=== PATIENT | male | born 1980 | race African-American/Black ===

== ENCOUNTER 2022-02-01 12:25 | Emergency (ER) | payer OTHER, SELFPAY ==
[2022-02-01 12:31] VITALS: BP 134/88; PULSE 76; RESP 18; TEMP 36.6; O2SAT 98; BMI 33.3
[2022-02-01 12:49] VITALS: BP 129/93; PULSE 108
[2022-02-01] MEDS: LORazepam 1 MG TABLET 2 MG PO (13:02)
[2022-02-01] MEDS: Ondansetron ODT 4 MG TAB.RAPDIS TRANSLINGU (13:02)
[2022-02-01] MEDS: HaloperidoL 5 MG TABLET PO (13:03)
[2022-02-01] MEDS: diphenhydrAMINE HCL 25 MG TABLET 50 MG PO (13:03)
--- NOTE | 2022-02-01 13:07 | PC.NURSE ---
Pt redirectable but having momentary outbursts. Pt did take oral meds willingly but then had moment of anxiety and forcefully vomited by putting his fingers down his throat. Possible loss of oral meds via vomiting. Pt states that he needs an IV .
[2022-02-01 13:25] LABS: MANUAL DIFF FLAG NO
[2022-02-01 13:28] LABS: Basophils Absolute Auto 0.1 X10*3/uL (0.0-0.2); Basophils Percent Auto 0.4 % (0-2); Hematocrit 49.5 % (42.0-52.0); Hemoglobin 16.5 g/dl (14.0-18.0); Imm Gran Abs Auto 0.03 X10*3/uL (0.00-0.03); Imm Gran Pct Auto 0.2 % (0.0-0.4); Lymphocytes Absolute Auto 4.4 X10*3/uL (1.2-4.9); Lymphocytes Percent Auto 35.8 % (20-40); Mean Corpuscular HGB Conc 33.3 g/dl (31.0-36.0); Mean Corpuscular Hemoglobin 27.3 pg (27.0-33.0); Mean Corpuscular Volume 81.8 fL (80.0-98.0); Mean Platelet Volume 9.3 fL (9.4-12.4); Monocytes Absolute Auto 0.8 X10*3/uL (0.1-1.2); Monocytes Percent Auto 6.4 % (2-11); Neutrophils Percent Auto 57.2 % (45-73); Platelet Count 488 X10*3/uL (160-400); Red Blood Count 6.05 X10*6/uL (4.60-5.80); Red Cell Distribution Width 13.5 % (11.0-16.0); White Blood Count 12.3 X10*3/uL (4.8-10.8)
[2022-02-01] MEDS: Haloperidol Lactate 5 MG/ML VIAL IVPUSH (13:33)
[2022-02-01] MEDS: diphenhydrAMINE HCL 50 MG/ML VIAL IVPUSH (13:33)
[2022-02-01] MEDS: ondansetron HCL 4 MG/2 ML VIAL IVPUSH (13:33)
[2022-02-01 13:42] LABS: COVID-19 Test Negative (Negative); IDNOW Serial# 16C4AD1C
[2022-02-01 13:44] LABS: Alanine Aminotransferase 47 U/L (0-40); Albumin Level 4.3 g/dL (3.5-5.0); Alkaline Phosphatase 95 U/L (39-117); Anion Gap 19 (12-20); Aspartate Amino Transferase 29 U/L (5-37); Bilirubin Total < 0.2 mg/dL (0.0-1.0); Blood Urea Nitrogen 12 mg/dL (9-16); Calcium 8.8 mg/dL (8.4-10.2); Carbon Dioxide 22 mmol/L (22-29); Chloride 106 mmol/L (96-108); Creatinine Clr Calc Pharmacy 84.1; Estimated Glomerular Filt Rate > 60; Ethanol 215 mg/dL; Glucose Random 112 mg/dL (60-115); Sodium 143 mmol/L (135-145); Total Protein 7.9 g/dL (6.5-8.0)
--- NOTE | 2022-02-01 14:16 | ED_ITS ---
HPI - Psych General Chief Complaint: ETOH/Substance Use Stated Complaint: ETOH Time Seen by Provider: 02/01/22 12:41 Source: patient Mode of arrival: ambulatory Limitations: other (Intoxicated) History of Present Illness HPI Narrative: 41-year-old male with a past medical history of anxiety, depression and PTSD who reports he sees a therapist/psychiatrist is presenting to the ED with complaints of increased anxiety/depression/PTSD feeling very regretful for stuff he has done in the past although very vague about this. Reports that today he drank 1 gal of vodka and then attempt to kill himself. He continues to say ?I just want to end myself?. Is presenting with nausea and vomiting actively. He denies any drug usage. He denies any HI/auditory visualizations or thoughts of self injury. Reports he does not drink every day only socially. Reports he is pain large amounts of child support. Reports that he was living with his girlfriend although she is moving on going to [place] now he will be by himself. Denies any dizziness, headaches, chest pain or shortness of breath, dyspnea on exertion, orthopnea, sore throat, cough, rashes, recent falls or trauma, abdominal pain, back pain, flank pain, dysuria, hematuria, abnormal penile discharge, recent travel or sick contacts, lower extremity edema or calf tenderness or any other symptoms complaints or concerns at this time. MD complaint: suicidal ideation, feels depressed, anxiety and alcohol abuse Onset (ago): week(s) Duration: constant and getting worse History of same: Yes Relieving factors: none Exacerbating factors: alcohol Context: recent alcohol abuse and significant life stressor (Reports he is very regretful 1st things that he did in the past although is very vague) Associated psychiatric symptoms: depression, suicidal ideation and racing thoughts Associated symptoms: denies other symptoms Treatments prior to arrival: none If self harm: admits thoughts of self harm, has plan and has acted on plan (Patient intentionally tried to overdose on alcohol he drank 1 gal of vodka) Related Data Allergies Allergy/AdvReac Type Severity Reaction Status Date / Time No Known Allergies Allergy Mild NKA Unverified 02/22/20 14:41 Review of Systems Review of Systems: Constitutional : No Fever, No Chills ENT/Mouth : No Ear Pain, No Nasal Congestion, No sore throat Eyes: No Eye Pain, No Swelling, No Redness Cardiovascular : No Chest Pain, No SOB Respiratory : No Cough, No Sputum, No Dyspnea Gastrointestinal : No ingestions, + Nausea, + Vomiting, No Diarrhea, No Hematochezia, No Melena Genitourinary : No Dysuria, No Urinary Frequency, No Hematuria Musculoskeletal : No Myalgias Skin : No Skin Lesions, No rash Neuro : No Weakness, No Numbness, No Paresthesias, No Dizziness, No Headache Psych : + Anxiety, + Depression, + SI, + thoughts of self injury, No HI, No AVH, Heme/Lymph: No Lymphadenopathy Endocrine : No Polyuria, No Polydipsia Yes all other systems are reviewed and are negative [facility] Past Medical History Attestation statement: The following information was validated with the patient. Source: old records reviewed and nursing notes reviewed Social History Social History Alcohol intake: current Alcohol intake frequency: 3 or more drinks per day Advance Directives: No Advance Directives Information Provided: No Physical Exam Vital Signs: Vital Signs: Last Vital Signs Temp 98 F 02/01/22 12:31 Pulse 108 H 02/01/22 12:49 Resp 18 02/01/22 12:31 BP 129/93 H 02/01/22 12:49 Pulse Ox 98 02/01/22 12:31 O2 Del Method 02/01/22 12:31 BMI result Body Mass Index 33.3 vital signs have been reviewed as normal and appeared to be correct. Blood pressure normal. Heart rate normal. Respiration rate normal. Temperature normal. Oxygen saturation normal. Appearance: Alert and very anxious intoxicated with EtOH on odor. Oriented X3. No acute distress. Head: Normal external exam. Normocephalic. Atraumatic. No Peres signs noted. No raccoon eyes noted Eyes: PERRLA. EOMI. Conjunctiva and sclera normal. Eyelids normal. ENT: EAC normal. TM's Normal. Pharynx normal. Uvula midline. Moist mucous membranes. No trismus noted. No drooling noted. No muffled voice noted. Neck: Normal inspection. Neck supple. FROM. No adenopathy. Thyroid Normal. No meningeal signs. No neck mass noted. CVS: Normal heart rate and rhythm. Heart sound normal. No murmurs noted. Pulses normal throughout. Respiratory: No respiratory distress. Painless inspiration. Breath sounds normal. No wheezes/rales/rhonchi noted. Chest nontender. No accessory muscle usage noted or decreased air movement noted. Abdomen: Soft and nontender. Bowel sounds normal in all 4 quadrants. No distention noted. No organomegaly noted. No visible injury noted. Back: No CVA tenderness. Full range of motion noted. Skin: Skin warm and dry. Normal skin color. Normal skin turgor. No rash es/lesions/lacerations noted. Extremities: No lower extremity edema. Extremities exhibit normal range of motion. Extremities nontender. Neuro: Oriented X 3. No motor deficit. No sensory deficit. Reflexes normal. CN's II-XII intact bilaterally? Psych: Appearance grossly normal, well-kept, mental status normal, speech and movement normal, speech clear, patient appears very sad and anxious along with depressed. Course Course Course Narrative: 12:45pm - 41-year-old male with a past medical history of anxiety, depression and PTSD who reports he sees a therapist/psychiatrist is presenting to the ED with complaints of increased anxiety/depression/PTSD feeling very regretful for stuff he has done in the past although very vague about this. Reports that today he drank 1 gal of vodka and then attempt to kill himself. He continues to say ?I just want to end myself?. Is presenting with nausea and vomiting actively. He denies any drug usage. He denies any HI/auditory visualizations or thoughts of self injury. Reports he does not drink every day only socially. Reports he is pain large amounts of child support. Reports that he was living with his girlfriend although she is moving on going to [place] now he will be by himself. Plan: Will obtain labs. Will obtain UA, drug urine screen. Provide Zofran, Haldol and Ativan along with Benadryl so the patient more relaxed and less anxious and wants the patient is clinically sober he can be evaluated by crisis. Will continue to monitor. Reevaluation(s) Reevaluation #1: - labs reviewed [place] [id number]. Platelet count 488. ALT 47. Alcohol level 215. Otherwise all other labs are within normal limits. Patient negative for COVID. - therefore at this time patient is resting respirations even and unlabored no apparent distress. Awaiting to be clinically sober/more alert and awake to be evaluated by crisis. Will continue to monitor. Time: 14:23 Reevaluation #2: - patient evaluated [facility] and is clinically sober and now is very regretful of everything he was same reports that he is goal oriented wants to be there with his girlfriend and kids does not want to harm himself or anyone else. Denies any SI/HI/auditory visualizations thoughts of self-injury at this time. Is able to walk around the ER room and use the bathroom no difficulties. Therefore at this time will DC home instructions return if any new or worsening symptoms to follow up with primary care provider. Patient understands agrees with this plan. Girlfriend will pickle sorter the patient. Time: 18:25 MDM - Psych Medical Records Attestation: I reviewed the patient's medical records. Lab Data Attestation: I reviewed the patient's lab results. Result diagrams: 02/01/22 13:21 02/01/22 13:21 Labs: Lab Results 02/01/22 02/01/22 02/01/22 Range/Units 13:21 13:21 13:21 WBC 12.3 H (4.8-10.8) X10*3/uL RBC 6.05 H (4.60-5.80) X10*6/uL Hgb 16.5 (14.0-18.0) g/dl Hct 49.5 (42.0-52.0) % MCV 81.8 (80.0-98.0) fL MCH 27.3 (27.0-33.0) pg MCHC 33.3 (31.0-36.0) g/dl RDW 13.5 (11.0-16.0) % Plt Count 488 H (160-400) X10*3/uL MPV 9.3 L (9.4-12.4) fL Immature Gran % (Auto) 0.2 (0.0-0.4) % Neut % (Auto) 57.2 (45-73) % Lymph % (Auto) 35.8 (20-40) % Payne % (Auto) 6.4 (2-11) % Eos % (Auto) 0.0 (0-4) % Baso % (Auto) 0.4 (0-2) % Lymph # (Auto) 4.4 (1.2-4.9) X10*3/uL Payne # (Auto) 0.8 (0.1-1.2) X10*3/uL Eos # (Auto) 0.0 (0.0-0.4) X10*3/uL Baso # (Auto) 0.1 (0.0-0.2) X10*3/uL Abs Immat Gran (auto) 0.03 (0.00-0.03) X10*3/uL Absolute Neuts (auto) 7.0 (2.0-8.3) x10*3/uL Absolute Nucleated RBC 0.000 (0.0-0.012) X10*3/uL Nucleated RBC % (auto) 0.0 (0.0-0.2) /100WBC Sodium 143 (135-145) mmol/L Potassium 4.0 (3.3-5.1) mmol/L Chloride 106 (96-108) mmol/L Carbon Dioxide 22 (22-29) mmol/L Anion Gap 19 (12-20) BUN 12 (9-16) mg/dL Creatinine 1.22 (0.5-1.4) mg/dL Estim Creat Clear Calc 84.1 Estimated GFR > 60 Random Glucose 112 (60-115) mg/dL Calcium 8.8 (8.4-10.2) mg/dL Magnesium 2.0 (1.6-2.6) mg/dL Total Bilirubin < 0.2 (0.0-1.0) mg/dL AST 29 (5-37) U/L ALT 47 H (0-40) U/L Alkaline Phosphatase 95 (39-117) U/L Total Protein 7.9 (6.5-8.0) g/dL Albumin 4.3 (3.5-5.0) g/dL Ethyl Alcohol 215 mg/dL COVID-19 (MARTHA) Negative (Negative) COVID-19 Clin Com See Note Discharge Plan Discharge Clinical Impression: Alcoholic intoxication, Anxiety, Depression, Acute post-traumatic stress disorder Patient Disposition: Home, Self-Care Referrals: Flaco Durán MD [Physician] - 2 days Stand Alone Forms: Work/School Release Interventions: ED Discharge Assessment Last Done: 02/01/22 18:39 Discharge Date/Time: 02/01/22 18:46 Print Language: Mohawk
--- NOTE | 2022-02-01 18:52 | MHC.CARE ---
Pt is a 41 year old , [place] speaking male. Pt has been medically cleared and is being assessed by the CARE Team to determine appropriate treatment recommendations. Pt is alert and oriented x3, sitting in his bed in the ED. Pt. is dressed in his own clothing and the hospital issued attire is on the floor. Pt reported having a difficult conversation over the phone with friends he was in [place] with and relapsed. He reported drinking about a gallon of vodka. Pt. reported he was sober for not a long time . Pt. reports living with his girlfriend and engaging with his providers, therapist and psychiatrist at the [facility] and his PCP. Pt denies SI/HI. Pt. reported he has been inpatient previously and does not feel that is necessary at this time, Pt. stated he would like to be discharged in a few hours. Plan is for pt to be discharged. This disposition is discussed with and agreed upon by ED provider PEYTON Ponce.
== END 2022-02-01 18:46 | disposition home or self-care (01) ==
PROVIDERS: Physician Assistant Medical; Emergency Provider Emergency Medicine; PCP Family Medicine
DX: F10.129 Alcohol abuse with intoxication, unspecified (principal); F33.1 Major depressive disorder, recurrent, moderate; R45.851 Suicidal ideations; Y90.7 Blood alcohol level of 200-239 mg/100 ml; Z20.822 Contact with and (suspected) exposure to COVID-19; Z79.899 Other long term (current) drug therapy
CPT/HCPCS: 36415; 80053; 82077; 83735; 85025; 87635; 96374; 96375; 99284; 99285; J1200; J2405; Q0163

== ENCOUNTER 2023-06-07 14:17 | Emergency (ER) | payer OTHER, SELFPAY | END 2023-06-07 14:39 | disposition left against medical advice (07) | PROVIDERS: Emergency Provider Emergency Medicine; PCP Family Medicine | DX: F10.90 Alcohol use, unspecified, uncomplicated (principal); Y90.9 Presence of alcohol in blood, level not specified ==